=== PATIENT | male | born 1960 | race Native Hawaiian/Other Pacific Islander ===

== ENCOUNTER 2016-11-20 17:52 | Emergency (ER) | payer OTHER ==
[~2016-11-20] VITALS: Ht 160 cm; Wt 65.0 kg
[~2016-11-20 17:52] MED LIST: LOMO PO; METR250 PO; SULF-154 PO
[2016-11-20 17:54] VITALS: BP 133/82; PULSE 86; RESP 18; TEMP 97.4; O2SAT 100
--- NOTE | 2016-11-20 17:59 | PD ---
Physical Exam Time Seen by Provider: 17:57 Narrative 56yo M c/o L knee pain while playing soccer and running on Thursday. Denies injury. [place] a "pop" while walking afterwards. Patient seen in triage. Awaiting bed placement. VS reviewed. Data Data Last Documented VS Vital Signs Date Time Temp Pulse Resp B/P Pulse Ox O2 Delivery O2 Flow Rate FiO2 11/20/16 17:54 97.4 86 18 133/82 100 MDM Supervised Visit with PHIL: Lakeshia Whatley November 20, 2016 17:59
[2016-11-20] MEDS ORDERED: IBUP800T23 PO (18:12)
--- NOTE | 2016-11-20 18:12 | PD ---
HPI . left knee pain since Thursday/Thursday Chief Complaint: Injury Time Seen by Provider: 18:01 Travel History International Travel<30 days: Yes Contact w/Intl Traveler<30days: Yes Name of Country Traveled to: [place] Traveled to known affect area: No History of Present Illness HPI 56-year-old male with no past medical history here with complaints of left knee pain since Thursday or Thursday of this past week. Patient tells me that he was playing soccer when he ran too fast and heard a popping in his left knee. He has been ambulatory since, patellas me that it hurts when applying more pressure on the left knee. He went to his primary care provider and was told that he would need further imaging, and was advised to come to the emergency department. His primary care provider told him it would take about a week to get a MRI, however in the emergency department we can have it done today. PFSH Past Surgical History Appendectomy: Yes Social History Alcohol Use: No Tobacco Use: No Substance Use: No Allergies-Medications (Allergen,Severity, Reaction): Coded Allergies: No Known Allergies (Verified , 11/20/16) Reported Meds & Prescriptions Reported Meds & Active Scripts Active Ibuprofen 800 Mg Tab 800 Mg PO TID Reported Metformin (Metformin HCl) 500 Mg Tab 500 Mg PO BIDPC With meals Review of Systems General / Constitutional: No: Fever Eyes: No: Visual changes HENT: No: Headaches Cardiovascular: No: Chest Pain or Discomfort Respiratory: No: Shortness of Breath Gastrointestinal: No: Abdominal Pain Genitourinary: No: Dysuria Musculoskeletal: Positive: Pain (left knee pain) Skin: No Rash Neurologic: No: Weakness Psychiatric: No: Depression Endocrine: No: Polydipsia Hematologic/Lymphatic: No: Easy Bruising Physical Exam Narrative GENERAL: AAO x 3, no acute distress, Well-nourished, well-developed patient. SKIN: Warm and dry. No visible rashes or bruising. HEAD: Normocephalic and atraumatic. EYES: No scleral icterus. No injection or drainage. EOM intact, PERRLA ENT: No nasal drainage noted. Mucous membranes pink. Airway patent. NECK: Supple, trachea midline. No JVD. CARDIOVASCULAR: Regular rate and rhythm without murmurs, gallops, or rubs. RESPIRATORY: Breath sounds equal bilaterally. No accessory muscle use. No rhonchi or rales. GASTROINTESTINAL: Abdomen soft, non-tender, nondistended. EXTREMITIES: No cyanosis or edema. Full range of motion of the left knee actively and passively. No edema, no ecchymosis. No effusion seen. Flexion- extension is normal. Negative Kvng and Mayra BACK: Nontender without obvious deformity. No CVA tenderness. PSYCH: AAO x 3, normal affect. Data Data Last Documented VS Vital Signs Date Time Temp Pulse Resp B/P Pulse Ox O2 Delivery O2 Flow Rate FiO2 11/20/16 17:54 97.4 86 18 133/82 100 Orders Crutches (11/20/16 18:14) MDM Medical Decision Making Medical Screen Exam Complete: Yes Emergency Medical Condition: Yes Medical Record Reviewed: Yes Differential Diagnosis internal derangement of knee, knee sprain, less likely fracture Narrative Course 56-year-old male here with left knee pain. A full examination was done and I do not see any type of abnormality of this left knee. It is possible that he has a soft tissue injury and MRI would be the imaging modality of choice. I've discussed this with the patient and recommended he follow-up with his primary care provider for further recommendations and order for MRI. Prolonged discussion with patient regarding the protocol here in the emergency room and explained to him that I will not be ordering an MRI. I've explained to him that x-ray shows bony abnormalities, which I do not suspect he has. He goes on to tell me that he has insurance and was hoping that I can order the MRI. I explained to him that it does not have anything to do with having insurance or not having insurance. Crutches were provided. 183: Patient's primary care doctor (Dr. Howe) calls the ED requesting to speak to me. He asks me to order MRI for patient as he has "[facility]" and they will not authorize a MRI on outpatient basis. I explained to the doctor that unfortunately his physical exam and condition is not something requiring emergent MRI and that it could be done on an outpatient basis. He goes on to ask for CT because he knows Xray is not going to work. I spent over 5 minutes on the phone with the provider discussing why MRI would not be done. He goes on to tell me that I did not even call him to discuss what was going on with his patient. I explained that this is not a medical emergency requiring such contact. He continues telling me how this is inappropriate and I should have called him etc. He continues requesting MRI because "[facility]" will not pay for it as outpatient. I explained to him that is an insurance issue that I cannot help with. I have discussed the case with Dr. Trejo. Diagnosis Primary Impression: Internal derangement of knee Qualified Code: M23.92 - Internal derangement of knee, left Patient Instructions: General Instructions Additional Instructions: Please return to emergency department if your symptoms return or worsen. Follow up with your primary care provider. Take medications as prescribed. Med/Other Pt SpecificInfo: Prescription(s) given Scripts Ibuprofen 800 Mg Cft056 Mg PO TID #21 TAB Prov:Russ Trejo MD 11/20/16 Disposition: 01 DISCHARGE HOME Condition: Stable Sharda Squires November 20, 2016 18:12
[2016-11-20] MEDS ORDERED: METF500T PO (18:24)
== END 2016-11-20 18:52 | disposition home or self-care (01) ==
LOC: NEPK 17:52
DX: M23.92 Unspecified internal derangement of left knee (principal); X58.XXXA Exposure to other specified factors, initial encounter; Y93.66 Activity, soccer; Y92.9 Unspecified place or not applicable; Y99.8 Other external cause status
CPT/HCPCS: 99282; E0113

== ENCOUNTER → 2017-11-03 | Day surgery (SDC) | payer OTHER ==
[~2017-11-03] MED LIST changes: +BUPIVACAINE/EPINEPHRINE 0.25% PF 10 ML VIAL ONE; +IBUP1TAB7 PO; +KETOROLAC TROMETHAMINE 30 MG/ML (IVP) VIAL IV PUSH ONE; +LACTATED RINGER'S 1000 ML INJ 1,000 ML ONE; -LOMO PO; +METF500T PO; -METR250 PO; +MIDAZOLAM HCL 2 MG/2 ML VIAL ONE; +ONDANSETRON HCL 4 MG/2 ML VIAL IV PUSH ONE; +PROPOFOL 200 MG/20 ML AMP IV ONE; -SULF-154 PO; +ceFAZolin INJ 1,000 MG VIAL ONE
--- NOTE | 2017-11-03 13:09 | TN ---
cc: Srinivas Gaines MD DATE OF SURGERY: 11/03/2017 POSTOPERATIVE DIAGNOSIS: Left knee medial meniscus tear and left knee degenerative arthritis. POSTOPERATIVE DIAGNOSES: 1. Left knee complex medial meniscus tear and degenreative lateral meniscus tear. 2. Chondromalacia grade IIIB, medial femoral condyle 50% weightbearing surface and IIIB medial tibial plateau, 20% joint surface. 3. Large suprapatellar medial plica. 4. 5% rupture ACL PROCEDURE PERFORMED: 1. Left knee arthroscopy for partial medial and lateral meniscectomies. 2. Left knee arthroscopic chondroplasty medial femoral condyle and medial tibial plateau. 3. Excision large medial plica (limited synovectomy). SURGEON: MD Eder ANESTHESIA: General via laryngeal mask augmented by local infiltration. ESTIMATED BLOOD LOSS: Minimal. TOURNIQUET TIME: 22 minutes at 300 mm Hg. FLUID REPLACEMENT: Less than 500 mL of crystalloid. There was minimal blood loss. IMPLANTS: No implants were utilized. COUNTS: All counts were correct. COMPLICATIONS: There were no intraoperative complications. INDICATIONS FOR PROCEDURE: Mr. Painting is a 56-year-old gentleman who has had a nearly 1 year history of left knee pain with mechanical symptoms localizing to the medial compartment of the knee. He had limited relief with intraarticular injection, activity modification and continues to have problems with athletic activity and some activites of daily living. As a result of his persistent symptoms and his findings on MRI that are consistent with both arthritis and meniscal pathology, he is being taken to the operating room for left knee arthroscopy for debridement in an attempt to eliminate the majority of his symptoms. He was aware of the risks, benefits, potential complications and limitations of the procedure and full written informed consent was obtained. He is well aware that I cannot predict if he will be able to resume racket sports but it is hopeful he will if he feels relief. DESCRIPTION OF PROCEDURE: After the patient was appropriately identified in the holding area, he correctly marked his left knee and I had initialed it as well. He was then given 1 gram of intravenous Ancef as prophylactic antibiotic and he was taken into the operating suite. He was placed under general laryngeal mask anesthetic by Dr. Serrano and he then had a very well-padded tourniquet applied high on his left thigh. He was then prepped with both alcohol and Hibiclens and draped in the normal standard fashion including an impervious stockinette from the foot all the way up to the mid-calf. At this time, a brief timeout was held, confirming the left leg was the appropriate surgical site. The team was in agreement and the case was now begun. The leg was elevated and then exsanguinated with an Amilcar wrap and the tourniquet was raised to 300 mmHg. Standard anteromedial and anterolateral joint line portals were established under direct vision. The scope was introduced. Moderate effusion was evacuated. Inflow was initiated and the survey of the joint was as follows: There was a small yellowish effusion that was immediately evacuated and then as I began to inspect the joint itself the patellofemoral joint showed minimal chondromalacia on either surface. There was a very large thickened medial suprapatellar plica which was gently debrided in order to prevent tethering of the patella. The medial gutter was now explored. No evidence of any significant synovitis was encountered. I saw no evidence of any loose bodies. As I began to explore into the medial compartment, immediately came into view was a fairly large area of chondromalacia grade IIIA and IIIB of the medial femoral condyle. It compromised approximately 50% of the joint surface and this had a surrounding area of fairly unstable grade IIIB tissue. I went ahead and used the oscillating shaver in order to remove only the unstable tissue to prevent further fragmentation and then I went ahead and inspected the entire weightbearing surface and excised any areas where cartilage was simply loose and ready to fall off. There were several unstable ridges which were smoothed down a bit and there was some exposed bone in several locations where some early eburnation changes were present. There was no evidence of any cavitation or collapse seen. On the tibial surface, in addition to there being higher grade chondromalacia under the edge of the torn portion of the meniscus posteriorly as well as on the anterior horn region, there were several areas of fairly unstable chondral tissue that was in the intermediate zone as well. I went ahead and used the shaver to remove any fragment that looked like it was loose or going to become loose. I did not find any large loose bodies and the majority of the debris was a very small and was easily suction decompressed. The meiscus was now carefully evaluated. There was a complex unstable tear of the posterior one third of the medial meniscus that was bordered by the full thickness cartilage loss and there was also an area of early eburnation here as well. I went ahead and excised the unstable meniscal tissue that was seen and probed but a good stable rim of meniscus remained. Approximately 50% of the meniscus was excised from the posterior portion. Further gentle chondroplasty of the tibia was done to remove loose fragments and to smooth highly irregular areas. I elected not to perform microfracture or abrasion due to the kissing nature of the medial compartment lesions. At this time the intercondylar notch was now explored. The ACL was intact and tensioned appropriate with anterior drawer maneuvers. There was hypertrophic synovial tissue that adhered to the anterior portion of it and p[erhaps a 5% rupture that was gently debrided with a shaver. The majority of the ligament was stable and functioning normally. The lateral compartment was now entered. There was no evidence of any full thickness cartilage loss seen; however, there was clearly an area of a tear seen of the anterior horn of the lateral meniscus that extended into the mid-body. It was more of a degenerative appearing tear. I went ahead and debrided this was with an oscillating shaver and there was no evidence of any area of significant meniscal instability once it was debrided. The lateral gutter was now explored and no further loose bodies or debris was appreciated, no significant synovitis was found. The knee was taken through a range of motion and suction decompressed several times, then reinsufflated with fluid. I went ahead and probed all surfaces once again and did not find any additional pathology. At this time, it was suction decompressed one final time. The portals were all closed with 3-0 nylon simple sutures and then 30 mL of 0.25% Marcaine with epinephrine were then used intraarticularly and in the incisions for postop pain relief. He was then dressed with Xeroform, 4 x 4's, ABDs and awoken from anesthesia and taken to Recovery in stable condition. Appropriate postoperative orders have been written. Srinivas Gaines MD Electronically Signed Srinivas Gaines MD SIS/SB , 12:08 PM , 01:08 PM MICHAEL
== END | disposition home or self-care (01) ==
LOC: ESDC 09:18
PROVIDERS: ATTEND Orthopaedic Surgery Sports Medicine
DX: S83.232A Complex tear of medial meniscus, current injury, left knee, initial encounter (principal); S83.282A Other tear of lateral meniscus, current injury, left knee, initial encounter; M94.262 Chondromalacia, left knee; M67.52 Plica syndrome, left knee
CPT/HCPCS: 01400; 29880; J0690; J1885; J2250; J2405; J3010; J7120